=== PATIENT | female | born 1965 | race Caucasian/White ===

== ENCOUNTER 2022-10-11 10:37 | Emergency (ER) | payer OTHER, MEDICARE ==
[2022-10-11] MEDS ORDERED: Amoxicillin/Potassium Clav 875 MG TAB ONE (12:15)
[2022-10-11] MEDS ORDERED: Boostrix 0.5 ML (Tdap) VIAL (>/=7 yrs of age) ONE (12:15)
[2022-10-11] MEDS ORDERED: Albuterol 200 PUFF (6.7GM INHALER) ONE (12:15)
[2022-10-11] MEDS ORDERED: Rabies Vaccine Human 2.5 UNITS VIAL ONE (12:34)
== END 2022-10-11 13:26 | disposition home or self-care (01) ==
LOC: MADERS 10:37
DX: S71.152A Open bite, left thigh, initial encounter (principal); J42 Unspecified chronic bronchitis; F17.210 Nicotine dependence, cigarettes, uncomplicated; Z23 Encounter for immunization; W54.0XXA Bitten by dog, initial encounter
CPT/HCPCS: 71046; 90375; 90471; 90472; 90675; 90715; 96372

== ENCOUNTER 2024-01-31 17:46 | Emergency (ER) | payer MEDICARE | END 2024-01-31 19:21 | disposition short-term general hospital (02) | LOC: MADERS 17:46 | DX: R60.0 Localized edema (principal); R21 Rash and other nonspecific skin eruption; F17.210 Nicotine dependence, cigarettes, uncomplicated; K21.9 Gastro-esophageal reflux disease without esophagitis; Z79.899 Other long term (current) drug therapy | CPT/HCPCS: 99284 ==